=== PATIENT | male | born 1980 | race Caucasian/White ===

== ENCOUNTER 2017-11-15 11:33 | Emergency (ER) | payer SELFPAY ==
[~2017-11-15] VITALS: Ht 193 cm; Wt 95.5 kg
[2017-11-15 11:37] VITALS: BP 155/99
== END 2017-11-15 14:08 | disposition left against medical advice (07) ==
LOC: EMS 11:33
DX: Z53.21 Procedure and treatment not carried out due to patient leaving prior to being seen by health care provider (principal)

== ENCOUNTER 2019-12-28 11:48 | Emergency (ER) | payer OTHER ==
[~2019-12-28] VITALS: Ht 180.3 cm; Wt 86.4 kg
[2019-12-28] MEDS ORDERED: LIDOCAINE/PF 1% 5 ML VIAL INJ ONE (12:15)
[2019-12-28] MEDS ORDERED: BACITRACIN 0.9 GM PACKET OINTMENT TP ONE (12:15)
[2019-12-28 12:53] VITALS: BP 132/71
== END 2019-12-28 12:55 | disposition home or self-care (01) ==
LOC: EMS 11:50
DX: S61.412A Laceration without foreign body of left hand, initial encounter (principal); F12.90 Cannabis use, unspecified, uncomplicated; W45.8XXA Other foreign body or object entering through skin, initial encounter; Y93.89 Activity, other specified; Y92.89 Other specified places as the place of occurrence of the external cause; Y99.8 Other external cause status
CPT/HCPCS: 12001; 99282; J2001

== ENCOUNTER 2021-12-18 20:56 | Emergency (ER) | payer OTHER ==
[~2021-12-18] VITALS: Ht 193 cm; Wt 102.3 kg
[2021-12-18 21:07] VITALS: BP 141/100
== END 2021-12-18 22:40 | disposition home or self-care (01) ==
LOC: EMS 22:06
DX: S60.042A Contusion of left ring finger without damage to nail, initial encounter (principal); F12.90 Cannabis use, unspecified, uncomplicated; W21.02XA Struck by soccer ball, initial encounter; Y93.66 Activity, soccer; Y92.89 Other specified places as the place of occurrence of the external cause; Y99.8 Other external cause status
CPT/HCPCS: 99283

== ENCOUNTER 2023-06-10 23:40 | Emergency (ER) | payer OTHER ==
[~2023-06-10] VITALS: Ht 193 cm; Wt 102.3 kg
[2023-06-11 00:09] VITALS: TEMP 98.2
[2023-06-11] MEDS ORDERED: ACETAMINOPHEN 500 MG TABLET PO ONE (00:45)
[2023-06-11] MEDS ORDERED: BACITRACIN 0.9 GM PACKET OINTMENT TP ONE (00:45)
[2023-06-11 02:25] VITALS: BP 126/70; PULSE 70; RESP 16
[2023-06-11] MEDS ORDERED: ACET-3385 PO (03:32)
[2023-06-11] MEDS ORDERED: IBUP-1492 PO (03:32)
== END 2023-06-11 03:53 | disposition home or self-care (01) ==
LOC: EMS 23:41
DX: S06.0X0A Concussion without loss of consciousness, initial encounter (principal); F12.90 Cannabis use, unspecified, uncomplicated; V89.2XXA Person injured in unspecified motor-vehicle accident, traffic, initial encounter; Y93.89 Activity, other specified; Y92.89 Other specified places as the place of occurrence of the external cause; Y99.8 Other external cause status
CPT/HCPCS: 70450; 72125; 99284